=== PATIENT | female | born 1975 ===

== ENCOUNTER 2018-02-24 19:14 | Emergency (ER) | payer OTHER ==
[~2018-02-24] VITALS: Ht 180.3 cm; Wt 81.6 kg
--- NOTE | 2018-02-24 20:00 | NUR ---
Pt. BIB friend from work for R knee pain and immobility, pt. states at approx. 1800 she twisted her knee while sitting and felt sharp tightness/pain in the R knee and has been unable to straighten it out since then d/t intense pain, periph. LE CMS intact,
--- NOTE | 2018-02-24 20:02 | NUR ---
Rad. tech at bedside for xray,
[2018-02-24] MEDS ORDERED: ONDANSETRON IV *ER 4 MG/2 ML VIAL IV ONE (20:15)
[2018-02-24] MEDS ORDERED: HYDROMORPHONE 1 MG/1 ML DISP.SYRIN IV ONE (20:15)
[2018-02-24] MEDS ORDERED: ONDANSETRON 4 MG/2 ML VIAL ONE (20:35)
[2018-02-24] MEDS ORDERED: HYDROMORPHONE 1 MG/1 ML DISP.SYRIN ONE (20:35)
--- NOTE | 2018-02-24 20:49 | NUR ---
Dr. Valentin at bedside for manipulation of R knee
--- NOTE | 2018-02-24 21:13 | NUR ---
Patient discharged to home in stable conditon. Written and verbal after care instructions given. Patient verbalizes understanding of instructions. Pt. d/c per MD orders w/ prescription, d/c papers signed, all belongings w/ pt., IV/ID band removed, awaiting pickup by friend in room, NAD
--- NOTE | 2018-02-24 21:36 | NUR ---
Pt. given crutches, ambulated w/o difficulty, picked up by friend in private vehicle, NAD
== END 2018-02-24 21:46 | disposition home or self-care (01) ==
LOC: ER 19:16
DX: S83.004A Unspecified dislocation of right patella, initial encounter (principal); Z86.2 Personal history of diseases of the blood and blood-forming organs and certain disorders involving the immune mechanism; X58.XXXA Exposure to other specified factors, initial encounter; Y93.89 Activity, other specified; Y92.89 Other specified places as the place of occurrence of the external cause; Y99.8 Other external cause status
CPT/HCPCS: 29505; 73564; 96374; 96375; 99283; J1170; J2405; A4663

== ENCOUNTER 2018-04-05 23:09 | Emergency (ER) | payer OTHER ==
[~2018-04-05] VITALS: Ht 180.3 cm; Wt 83.0 kg
--- NOTE | 2018-04-06 02:25 | NUR ---
US at bedside
--- NOTE | 2018-04-06 02:35 | NUR ---
Patient discharged to home in stable conditon. Written and verbal after care instructions given. Patient verbalizes understanding of instructions. walked out of ER with no distress noted
[2018-04-06 02:36] VITALS: BP 130/88
== END 2018-04-06 02:36 | disposition home or self-care (01) ==
LOC: ER 23:11
DX: R22.42 Localized swelling, mass and lump, left lower limb (principal)
CPT/HCPCS: A4663